=== PATIENT | female | born 2000 | race Caucasian/White ===

== ENCOUNTER 2019-01-14 04:31 | Emergency (ER) | payer OTHER ==
[2019-01-14 04:36] VITALS: BP 131/85; PULSE 98; RESP 16; TEMP 98.4
[2019-01-14 04:59] LABS: Appearance,Urine Cloudy (Clear); Bacteria,Urine Moderate /hpf; Bilirubin,Urine Negative (Negative); Blood,Urine Negative (Negative); Color,Urine Yellow; Glucose,Urine (UA) Negative (Negative); Hyaline Casts,Urine 6 /lpf (0-2); Ketones,Urine Negative (Negative); Leukocyte Esterase,Urine Negative (Negative); Mucus,Urine Moderate /hpf; Nitrite,Urine Negative (Negative); PH, Urine 6.5 (5.0-8.0); Protein,Urine Negative (Negative); RBC,Urine <1 /hpf (0-5); Specific Gravity,Urine 1.013 (1.001-1.035); Squamous Epithelial Cell,Urine 3 /hpf (0-4); Urobilinogen,Urine <2.0 mg/dL (<2.0); WBC,Urine 3 /hpf (0-5)
[2019-01-14 05:06] LABS: Amphetamine Screen,Urine Not Detected (NotDetected); Barbiturate Screen,Urine Not Detected (NotDetected); Benzodiazepines Screen,Urine Not Detected (NotDetected); Cocaine Screen,Urine Not Detected (NotDetected); Methadone Screen, Urine Not Detected (NotDetected); Opiate Screen,Urine Not Detected (NotDetected); Oxycodone Screen, Urine Not Detected (NotDetected); Phencyclidine Screen,Urine Not Detected (NotDetected); Tricyclic Antidepressant,Urine Not Detected (NotDetected); Urn Cannabinoid Scrn Detected (NotDetected)
--- NOTE | 2019-01-14 05:17 | ED ---
General Adult HPI - General Chief complaint: Syncope Stated complaint: LLQ Pain Time Seen by Provider: 01/14/19 04:36 Source: family, EMS, RN notes reviewed Mode of arrival: EMS Limitations: no limitations - History of Present Illness Initial comments: 18-year-old female presenting with lightheadedness, and lower abdominal pain. Patient states she was walking to [place] around 4:30 AM, felt somewhat lightheaded, and developed some lower abdominal pain. Pain is nearly completely resolved at the time my evaluation. Denies passing out. She states she has not had much to drink other than some soda pop throughout the day. She also admits to smoking marijuana earlier. Patient is asymptomatic at the time my evaluation. No vomiting. No diarrhea. No vaginal bleeding. No dysuria. No fever or chills. No cough or URI symptoms. - Related Data Allergies Allergy/AdvReac Type Severity Reaction Status Date / Time No Known Allergies Allergy Verified 01/14/19 05:10 Review of Systems ROS Statement: Those systems with pertinent positive or pertinent negative responses have been documented in the HPI. ROS Other: All systems not noted in ROS Statement are negative. Past Medical History Past Medical History: No Reported History History of Any Multi-Drug Resistant Organisms: None Reported Past Surgical History: No Surgical Hx Reported Past Psychological History: No Psychological Hx Reported, Anxiety Smoking Status: Current every day smoker Past Alcohol Use History: None Reported Past Drug Use History: Marijuana General Exam Limitations: no limitations General appearance: alert, in no apparent distress Head exam: Present: atraumatic, normocephalic Eye exam: Present: normal appearance, PERRL, EOMI ENT exam: Present: normal exam Neck exam: Present: normal inspection. Absent: tenderness, meningismus Respiratory exam: Present: normal lung sounds bilaterally. Absent: respiratory distress, wheezes, rales Cardiovascular Exam: Present: regular rate, normal rhythm GI/Abdominal exam: Present: soft, tenderness (Very mild tenderness, suprapubic) . Absent: distended, guarding, rebound, rigid Extremities exam: Present: normal inspection, normal capillary refill. Absent: pedal edema, calf tenderness Back exam: Present: normal inspection, full ROM Neurological exam: Present: alert, oriented X3, CN II-XII intact. Absent: motor sensory deficit Psychiatric exam: Present: normal affect, normal mood Skin exam: Present: warm, dry, intact Course Vital Signs 01/14/19 04:33 Temperature 98.4 F Pulse Rate 98 Respiratory 16 Rate Blood Pressure 131/85 O2 Sat by Pulse 98 Oximetry Medical Decision Making - Medical Decision Making 19-year-old female with lightheadedness, abdominal pain. Both symptoms resolved. Patient did smoke marijuana earlier in the day, symptoms may be related to marijuana use. She is soft abdomen with minimal focal tenderness suprapubic. No rebound or guarding. Vitals are stable. She will maintain oral hydration at home, she will abstain from marijuana use. She will return with worsening or changing abdominal pain. Urine test is negative, urinalysis negative for significant infection, and urine drug screen positive for marijuana. - Lab Data Lab Results 01/14/19 01/14/19 Range/Units 04:47 04:47 Urine Color Yellow Urine Appearance Cloudy H (Clear) Urine pH 6.5 (5.0-8.0) Ur Specific [place] 1.013 (1.001-1.035) Urine Protein Negative (Negative) Urine Glucose (UA) Negative (Negative) Urine Ketones Negative (Negative) Urine Blood Negative (Negative) Urine Nitrite Negative (Negative) Urine Bilirubin Negative (Negative) Urine Urobilinogen <2.0 (<2.0) mg/dL Ur Leukocyte Esterase Negative (Negative) Urine RBC <1 (0-5) /hpf Urine WBC 3 (0-5) /hpf Ur Squamous Epith Cells 3 (0-4) /hpf Urine Bacteria Moderate H (None) /hpf Hyaline Casts 6 H (0-2) /lpf Urine Mucus Moderate H (None) /hpf Urine HCG, Qual Not Detected (Not Detectd) Urine Opiates Screen Not Detected (NotDetected) Ur Oxycodone Screen Not Detected (NotDetected) Urine Methadone Screen Not Detected (NotDetected) Ur Propoxyphene Screen Not Detected (NotDetected) Ur Barbiturates Screen Not Detected (NotDetected) U Tricyclic Antidepress Not Detected (NotDetected) Ur Phencyclidine Scrn Not Detected (NotDetected) Ur Amphetamines Screen Not Detected (NotDetected) U Methamphetamines Scrn Not Detected (NotDetected) U Benzodiazepines Scrn Not Detected (NotDetected) Urine Cocaine Screen Not Detected (NotDetected) U Marijuana (THC) Screen Detected H (NotDetected) Disposition Clinical Impression: Dehydration, Marijuana use, Abdominal pain Disposition: HOME SELF-CARE Condition: Good Instructions (If sedation given, give patient instructions): Abdominal Pain (ED ) Is patient prescribed a controlled substance at d/c from ED?: No Referrals: None,Stated [Primary Care Provider] - 1-2 days Brooke Ny MD [REFERRING] - 1-2 days Time of Disposition: 05:17
== END 2019-01-14 05:20 | disposition home or self-care (01) ==
LOC: EC 04:31
DX: E86.0 Dehydration (principal); R10.30 Lower abdominal pain, unspecified; F12.90 Cannabis use, unspecified, uncomplicated; F17.200 Nicotine dependence, unspecified, uncomplicated
CPT/HCPCS: 80306; 81001; 81025; 99284

== ENCOUNTER 2019-01-18 19:27 | Emergency (ER) | payer OTHER ==
[2019-01-18 20:25] VITALS: RESP 18; TEMP 98.4
[2019-01-18] MEDS ORDERED: SODIUM CHLORIDE 0.9% 1,000 ML IV STA (20:33)
[2019-01-18] MEDS ORDERED: ONDANSETRON 4 MG/2 ML VIAL IVP STA (20:42)
[2019-01-18 20:55] LABS: Basophils % (A) 0 %; Eosinophils % (A) 1 %; HGB 13.5 gm/dL (11.4-16.0); Lymphocytes # (A) 1.1 k/uL (1.0-4.8); Lymphocytes % (A) 25 %; MCH 29.1 pg (25.0-35.0); MCV 88.1 fL (80.0-100.0); Mean Platelet Volume 6.8; Monocytes # (A) 0.4 k/uL (0-1.0); Monocytes % (A) 8 %; Neutrophils # (A) 2.9 k/uL (1.3-7.7); Neutrophils % (A) 64 %; Platelet Count 181 k/uL (150-450); RBC 4.65 m/uL (3.80-5.40); RDW 13.3 % (11.5-15.5); WBC 4.5 k/uL (4.0-11.0)
[2019-01-18 21:08] LABS: ALT 27 U/L (9-52); AST 21 U/L (14-36); Albumin 4.9 g/dL (3.5-5.0); Alkaline Phosphatase 56 U/L (38-126); Amylase 52 U/L (30-110); Anion Gap 10 mmol/L; Blood Urea Nitrogen 13 mg/dL (7-17); Calcium 9.7 mg/dL (8.4-10.2); Carbon Dioxide 22 mmol/L (22-30); Chloride 110 mmol/L (98-107); Glucose 101 mg/dL (74-99); Lipase 47 U/L (23-300); Potassium 3.8 mmol/L (3.5-5.1); Sodium 142 mmol/L (137-145); Total Bilirubin 0.6 mg/dL (0.2-1.3); Total Protein 8.3 g/dL (6.3-8.2)
[2019-01-18 22:00] LABS: Appearance,Urine Turbid (Clear); Bilirubin,Urine Negative (Negative); Blood,Urine Negative (Negative); Color,Urine Yellow; Glucose,Urine (UA) Negative (Negative); Ketones,Urine Negative (Negative); Leukocyte Esterase,Urine Negative (Negative); Mucus,Urine Rare /hpf; Nitrite,Urine Negative (Negative); Protein,Urine Trace (Negative); Squamous Epithelial Cell,Urine 4 /hpf (0-4); Urobilinogen,Urine <2.0 mg/dL (<2.0)
--- NOTE | 2019-01-18 22:21 | ED ---
General Adult HPI - General Chief complaint: Abdominal Pain Stated complaint: Abd pain Time Seen by Provider: 01/18/19 20:32 Source: patient, RN notes reviewed, old records reviewed Mode of arrival: ambulatory Limitations: no limitations - History of Present Illness Initial comments: 18-year-old female patient with no pertinent past medical history presents to ED with right lower quadrant pain. Patient was seen here approximate 4 days ago for similar symptoms over his left lower quadrant pain. Patient reports that she is not stretching right lower quadrant pains had some nausea as well as without emesis. Patient visited the pain is waxing and waning, nontender to palpation. Patient states that she has felt some intermittent dizziness. Patient denies dysuria, headache, shortness of breath, changes in vision, is that she is not . Systemic: Pt denies fatigue, myalgia, fever/chills, rash. Pt denies weakness, night sweats, weight loss. Neuro: Pt denies headache, visual disturbances, syncope or pre-syncope. HEENT: Pt denies ocular discharge or irritation, otalgia, rhinorrhea, pharyngitis or notable lymphadenopathy. Cardiopulmonary: Pt denies chest pain, SOB, heart palpitations, dyspnea on exertion. Abdominal/GI: Pt denies emesis or diarrhea : Pt denies dysuria, burning w/ urination, frequency/urgency. Denies new onset urinary or bowel incontinence. MSK: Pt denies myalgia, loss of strength or function in extremities. Neuro: Pt denies new onset weakness, paresthesias. - Related Data Home Medications Medication Instructions Recorded Confirmed Montelukast [Singulair] 10 mg PO DAILY PRN 01/18/19 01/18/19 Allergies Allergy/AdvReac Type Severity Reaction Status Date / Time cat dander Allergy Dyspnea Verified 01/18/19 21:27 Review of Systems ROS Statement: Those systems with pertinent positive or pertinent negative responses have been documented in the HPI. ROS Other: All systems not noted in ROS Statement are negative. Past Medical History Past Medical History: No Reported History History of Any Multi-Drug Resistant Organisms: None Reported Past Surgical History: No Surgical Hx Reported Past Psychological History: No Psychological Hx Reported, Anxiety Smoking Status: Current every day smoker Past Alcohol Use History: None Reported Past Drug Use History: Marijuana General Exam - General Exam Comments Initial Comments: Constitutional: NAD, AOX3, Pt has pleasant affect. HEENT: NC/AT, trachea midline, neck supple, no lymphadenopathy. Posterior pharynx non erythematous, without exudates. External ears appear normal, without discharge. Mucous membranes moist. Eyes PERRLA, EOM intact. There is no scleral icterus. No pallor noted. Cardiopulmonary: RRR, no murmurs, rubs or gallops, no JVD noted. Lungs CTAB in anterior and posterior mcdaniel. No peripheral edema. Abdominal exam: Abdomen soft and non-distended. Abdomen mildly tender to palpation in RLQ. Bowel sounds active in LLQ. No hepatosplenomegaly. No ecchymosis Neuro: CN II-XII intact. No nuchal rigidity. MSK: No posterior calf tenderness bilaterally, homans sign negative bilaterally. Posterior tibialis and radial pulse +2 bilaterally. Sensation intact in upper and lower extremities. Full active ROM in upper and lower extremities, 5/5 stregnth. Limitations: no limitations Course Vital Signs 01/18/19 01/18/19 20:21 23:05 Temperature 98.4 F Pulse Rate 128 H 78 Respiratory 18 18 Rate Blood Pressure 149/86 112/71 O2 Sat by Pulse 99 98 Oximetry Medical Decision Making - Medical Decision Making 18-year-old female patient with no pertinent past medical history presents to ED with right lower quadrant pain. Patient was seen here approximate 4 days ago for similar symptoms over his left lower quadrant pain. Patient reports that she is not stretching right lower quadrant pains had some nausea as well as without emesis. Patient visited the pain is waxing and waning, nontender to palpation. Patient states that she has felt some intermittent dizziness. Patient denies dysuria, headache, shortness of breath, changes in vision, is that she is not . Pt VSS, afebrile. Physical exam displayed: Abdomen soft and non-distended. Abdomen mildly tender to palpation in RLQ. Laboratory investigations are non-impressive CBC, CMP. UA negative. CT of abdomen and pelvis with contrast displayed partially imaged appendix which is unremarkable. 1 by peripherally enhancing right ovarian cyst, small amount of pelvic free fluid which may be physiologic and may relate to cyst rupture. These findings were explained to patient in depth. Patient verbalized understanding. Patient to be discharged, will follow up with primary care provider in 1-2 days. Patient to return to ED if new signs symptoms develop or condition worsens in any way. Case discussed with Dr. Blanco. - Lab Data Result diagrams: 01/18/19 20:44 01/18/19 20:44 Lab Results 01/18/19 01/18/19 01/18/19 Range/Units 20:20 20:20 20:44 WBC 4.5 (4.0-11.0) k/uL RBC 4.65 (3.80-5.40) m/uL Hgb 13.5 (11.4-16.0) gm/dL Hct 41.0 (34.0-46.0) % MCV 88.1 (80.0-100.0) fL MCH 29.1 (25.0-35.0) pg MCHC 33.0 (31.0-37.0) g/dL RDW 13.3 (11.5-15.5) % Plt Count 181 (150-450) k/uL Neutrophils % 64 % Lymphocytes % 25 % Monocytes % 8 % Eosinophils % 1 % Basophils % 0 % Neutrophils # 2.9 (1.3-7.7) k/uL Lymphocytes # 1.1 (1.0-4.8) k/uL Monocytes # 0.4 (0-1.0) k/uL Eosinophils # 0.0 (0-0.7) k/uL Basophils # 0.0 (0-0.2) k/uL Sodium (137-145) mmol/L Potassium (3.5-5.1) mmol/L Chloride (98-107) mmol/L Carbon Dioxide (22-30) mmol/L Anion Gap mmol/L BUN (7-17) mg/dL Creatinine (0.52-1.04) mg/dL Est GFR (CKD-EPI)AfAm (>60 ml/min/1.73 sqM) Est GFR (CKD-EPI)NonAf (>60 ml/min/1.73 sqM) Glucose (74-99) mg/dL Calcium (8.4-10.2) mg/dL Total Bilirubin (0.2-1.3) mg/dL AST (14-36) U/L ALT (9-52) U/L Alkaline Phosphatase (38-126) U/L Total Protein (6.3-8.2) g/dL Albumin (3.5-5.0) g/dL Amylase (30-110) U/L Lipase (23-300) U/L Urine Color Yellow Urine Appearance Turbid H (Clear) Urine pH 8.0 (5.0-8.0) Ur Specific [employer] 1.020 (1.001-1.035) Urine Protein Trace H (Negative) Urine Glucose (UA) Negative (Negative) Urine Ketones Negative (Negative) Urine Blood Negative (Negative) Urine Nitrite Negative (Negative) Urine Bilirubin Negative (Negative) Urine Urobilinogen <2.0 (<2.0) mg/dL Ur Leukocyte Esterase Negative (Negative) Urine WBC 5 (0-5) /hpf Urine WBC Clumps Rare H (None) /hpf Ur Squamous Epith Cells 4 (0-4) /hpf Urine Mucus Rare H (None) /hpf Urine HCG, Qual Not Detected (Not Detectd) 01/18/19 Range/Units 20:44 WBC (4.0-11.0) k/uL RBC (3.80-5.40) m/uL Hgb (11.4-16.0) gm/dL Hct (34.0-46.0) % MCV (80.0-100.0) fL MCH (25.0-35.0) pg MCHC (31.0-37.0) g/dL RDW (11.5-15.5) % Plt Count (150-450) k/uL Neutrophils % % Lymphocytes % % Monocytes % % Eosinophils % % Basophils % % Neutrophils # (1.3-7.7) k/uL Lymphocytes # (1.0-4.8) k/uL Monocytes # (0-1.0) k/uL Eosinophils # (0-0.7) k/uL Basophils # (0-0.2) k/uL Sodium 142 (137-145) mmol/L Potassium 3.8 (3.5-5.1) mmol/L Chloride 110 H (98-107) mmol/L Carbon Dioxide 22 (22-30) mmol/L Anion Gap 10 mmol/L BUN 13 (7-17) mg/dL Creatinine 0.63 (0.52-1.04) mg/dL Est GFR (CKD-EPI)AfAm >90 (>60 ml/min/1.73 sqM) Est GFR (CKD-EPI)NonAf >90 (>60 ml/min/1.73 sqM) Glucose 101 H (74-99) mg/dL Calcium 9.7 (8.4-10.2) mg/dL Total Bilirubin 0.6 (0.2-1.3) mg/dL AST 21 (14-36) U/L ALT 27 (9-52) U/L Alkaline Phosphatase 56 (38-126) U/L Total Protein 8.3 H (6.3-8.2) g/dL Albumin 4.9 (3.5-5.0) g/dL Amylase 52 (30-110) U/L Lipase 47 (23-300) U/L Urine Color Urine Appearance (Clear) Urine pH (5.0-8.0) Ur Specific [employer] (1.001-1.035) Urine Protein (Negative) Urine Glucose (UA) (Negative) Urine Ketones (Negative) Urine Blood (Negative) Urine Nitrite (Negative) Urine Bilirubin (Negative) Urine Urobilinogen (<2.0) mg/dL Ur Leukocyte Esterase (Negative) Urine WBC (0-5) /hpf Urine WBC Clumps (None) /hpf Ur Squamous Epith Cells (0-4) /hpf Urine Mucus (None) /hpf Urine HCG, Qual (Not Detectd) Disposition Clinical Impression: Abdominal pain Disposition: HOME SELF-CARE Condition: Stable Instructions (If sedation given, give patient instructions): Abdominal Pain (ED ) Additional Instructions: Patient to adhere to previously discussed treatment plan and will take medication(s) as directed. Patient to follow up with PCP in 1-2 days. Patient to return to ED if symptoms do not improve. Please follow-up with primary care provider tomorrow. Return to ER if symptoms worsen in anyway or if new signs symptoms develop. [facility] is a PCP which you may call. Is patient prescribed a controlled substance at d/c from ED?: No Referrals: None,Stated [Primary Care Provider] - 1-2 days [facility] [NON-STAFF] - 1-2 days
--- NOTE | 2019-01-18 23:04 | CT ---
EXAM: CT Abdomen and Pelvis With Intravenous Contrast CLINICAL HISTORY: Reason: Pain TECHNIQUE: Axial computed tomography images of the abdomen and pelvis with intravenous contrast. CTDI is 11.3 mGy and DLP is 490.5 mGy-cm. This CT exam was performed using one or more of the following dose reduction techniques: automated exposure control, adjustment of the mA and/or kV according to patient size, and/or use of iterative reconstruction technique. COMPARISON: None available FINDINGS: Lung bases: Imaged lung bases are clear. ABDOMEN: Liver: Mild hepatic periportal edema which is nonspecific. No focal hepatic abnormalities. Gallbladder and bile ducts: Gallbladder is unremarkable. No evidence of biliary dilatation. No calcified stones. Pancreas: Pancreas is unremarkable. Spleen: Mild splenomegaly measuring 13.6 cm in maximum length. Adrenals: No adrenal masses. Kidneys and ureters: No evidence of renal calculi or hydronephrosis. Stomach and bowel: Stomach is nondistended. No evidence of bowel obstruction or pneumoperitoneum. PELVIS: Appendix: Partially imaged appendix along right side of pelvis appears unremarkable, although appendix is partially obscured limiting CT evaluation for appendicitis. Clinical correlation is recommended. Bladder: Urinary bladder is incompletely distended but otherwise unremarkable. No bladder calculi. Reproductive: 1.8 cm peripherally enhancing right ovarian cyst. ABDOMEN and PELVIS: Intraperitoneal space: Small amount of pelvic free fluid. Bones/joints: No acute bony abnormalities. Vasculature: No abdominal aortic aneurysm. Lymph nodes: No evidence of lymphadenopathy. IMPRESSION: Mild hepatic periportal edema which is nonspecific. Partially imaged appendix along right side of pelvis appears unremarkable, although appendix is partially obscured limiting CT evaluation for appendicitis. Clinical correlation is recommended. 1.8 cm peripherally enhancing right ovarian cyst. Small amount of pelvic free fluid which may be physiologic and related to recent cyst rupture.
[2019-01-18 23:05] VITALS: BP 112/71; PULSE 78
== END 2019-01-18 23:30 | disposition home or self-care (01) ==
LOC: EC 19:27
DX: R10.31 Right lower quadrant pain (principal); N83.201 Unspecified ovarian cyst, right side; R42 Dizziness and giddiness; F17.200 Nicotine dependence, unspecified, uncomplicated; Z91.09 Other allergy status, other than to drugs and biological substances
CPT/HCPCS: 36415; 74177; 80053; 81001; 81025; 82150; 83690; 85025; 96361; 96374; 99284

== ENCOUNTER 2019-05-29 21:10 | Emergency (ER) | payer OTHER ==
[2019-05-29 23:12] LABS: Basophils % (A) 0 %; Eosinophils % (A) 1 %; HGB 12.8 gm/dL (11.4-16.0); Lymphocytes # (A) 0.7 k/uL (1.0-4.8); Lymphocytes % (A) 17 %; MCV 87.4 fL (80.0-100.0); Mean Platelet Volume 6.7; Monocytes # (A) 0.3 k/uL (0-1.0); Monocytes % (A) 6 %; Neutrophils # (A) 3.3 k/uL (1.3-7.7); Neutrophils % (A) 74 %; Platelet Count 193 k/uL (150-450); RBC 4.58 m/uL (3.80-5.40); RDW 13.4 % (11.5-15.5); WBC 4.4 k/uL (3.8-10.6)
[2019-05-29 23:21] LABS: ALT 19 U/L (9-52); AST 25 U/L (14-36); African American GFR (CKD) >90 (>60 ml/min/1.73 sqM); Albumin 4.7 g/dL (3.5-5.0); Alkaline Phosphatase 61 U/L (38-126); Anion Gap 10 mmol/L; Blood Urea Nitrogen 6 mg/dL (7-17); Calcium 9.4 mg/dL (8.4-10.2); Carbon Dioxide 23 mmol/L (22-30); Chloride 108 mmol/L (98-107); Glucose 85 mg/dL (74-99); Potassium 3.7 mmol/L (3.5-5.1); Sodium 141 mmol/L (137-145); Total Bilirubin 0.5 mg/dL (0.2-1.3); Total Protein 7.9 g/dL (6.3-8.2)
--- NOTE | 2019-05-29 23:25 | ED ---
General Adult HPI - General Chief complaint: Neuro Symptoms/Deficit Stated complaint: numbness in arms and legs, chest pain, head pressu Time Seen by Provider: 05/29/19 22:03 Source: patient, RN notes reviewed, old records reviewed Mode of arrival: ambulatory Limitations: no limitations - History of Present Illness Initial comments: 19-year-old female patient reportedly no pertinent past history presents to ED with multiple complaints. Patient reports that she has had some paresthesias in the dorsal aspect of her hand and the bottom of her left foot which have waxed and waned. Denies any right now. Patient also reports a mild waxing and waning headache, denies current headache. Pt also states that from time to time her eyes lose focus transiently. Denies any current visual changes. Patient has secondary complaint of some intermittent transient substernal chest pain that she has experienced 2-3 times over the last few days. Denies any today. Patient reports that she was previously evaluated for chest pain at [facility] 3 days ago and discharged. Patient primarily requests evaluation of brain today. Denies any other complaints. Systemic: Pt denies fatigue, fever/chills, rash. Pt denies weakness, night sweats, weight loss. Neuro: Pt denies headache, syncope or pre-syncope. HEENT: Pt denies ocular discharge or irritation, otalgia, rhinorrhea, pharyngitis or notable lymphadenopathy. Cardiopulmonary: Pt denies chest pain, SOB, heart palpitations, dyspnea on exertion. Abdominal/GI: Pt denies abdominal pain, n/v/d. : Pt denies dysuria, burning w/ urination, frequency/urgency. Denies new onset urinary or bowel incontinence. MSK: Pt denies myalgia, loss of strength or function in extremities. Neuro: Pt denies new onset weakness, paresthesias. - Related Data Home Medications Medication Instructions Recorded Confirmed Montelukast [Singulair] 10 mg PO DAILY PRN 01/18/19 01/18/19 Allergies Allergy/AdvReac Type Severity Reaction Status Date / Time cat dander Allergy Dyspnea Verified 05/29/19 21:26 Review of Systems ROS Statement: Those systems with pertinent positive or pertinent negative responses have been documented in the HPI. ROS Other: All systems not noted in ROS Statement are negative. Past Medical History Past Medical History: No Reported History History of Any Multi-Drug Resistant Organisms: None Reported Past Surgical History: No Surgical Hx Reported Past Psychological History: No Psychological Hx Reported, Anxiety Smoking Status: Current every day smoker Past Alcohol Use History: Occasional Past Drug Use History: Marijuana General Exam - General Exam Comments Initial Comments: Constitutional: NAD, AOX3, Pt has pleasant affect. HEENT: NC/AT, trachea midline, neck supple, no lymphadenopathy. Posterior pharynx non erythematous, without exudates. External ears appear normal, without discharge. Mucous membranes moist. Eyes PERRLA, EOM intact. There is no scleral icterus. No pallor noted. Cardiopulmonary: RRR, no murmurs, rubs or gallops, no JVD noted. Lungs CTAB in anterior and posterior mcdaniel. No peripheral edema. Abdominal exam: Abdomen soft and non-distended. Abdomen non-tender to palpation in all 4 quadrants. Bowel sounds active in LLQ. No hepatosplenomegaly. No ecchymosis Neuro: CN II-XII intact. No nuchal rigidity. No raccon eyes, no lópez sign, no hemotympanum. No cervical spinal tenderness. NIH 0. MSK: No posterior calf tenderness bilaterally, homans sign negative bilaterally. Posterior tibialis and radial pulse +2 bilaterally. Sensation intact in upper and lower extremities. Full active ROM in upper and lower extremities, 5/5 stregnth. Limitations: no limitations Course Vital Signs 05/29/19 05/30/19 21:22 00:39 Temperature 98.5 F Pulse Rate 120 H 82 Respiratory 18 16 Rate Blood Pressure 137/84 124/85 O2 Sat by Pulse 97 100 Oximetry Medical Decision Making - Medical Decision Making 19-year-old female patient reportedly no pertinent past history presents to ED with multiple complaints. Patient reports that she has had some paresthesias in the dorsal aspect of her hand and the bottom of her left foot which have waxed and waned. Denies any right now. Patient also reports a mild waxing and waning headache, denies current headache. Pt also states that from time to time her eyes lose focus transiently. Denies any current visual changes. Patient has secondary complaint of some intermittent transient substernal chest pain that she has experienced 2-3 times over the last few days. Denies any today. Patient reports that she was previously evaluated for chest pain at [facility] 3 days ago and discharged. Patient primarily requests evaluation of brain today. Denies any other complaints. Patient does signs stable, afebrile. Physical exam did not acute pathology, neurologic exam within normal limits, sensation intact. Laboratory investigations non-impressive. CT of brain and chest x-ray did not display acute process. Patient still currently asymptomati c. Patient discharged with neurology follow-up. Will return to ER if condition worsens. Case discussed with Dr. Benson. - Lab Data Result diagrams: 05/29/19 22:19 05/29/19 22: Lab Results 05/29/19 05/29/19 05/29/19 Range/Units 22:19 22:19 23:25 WBC 4.4 (3.8-10.6) k/uL RBC 4.58 (3.80-5.40) m/uL Hgb 12.8 (11.4-16.0) gm/dL Hct 40.0 (34.0-46.0) % MCV 87.4 (80.0-100.0) fL MCH 28.0 (25.0-35.0) pg MCHC 32.0 (31.0-37.0) g/dL RDW 13.4 (11.5-15.5) % Plt Count 193 (150-450) k/uL Neutrophils % 74 % Lymphocytes % 17 % Monocytes % 6 % Eosinophils % 1 % Basophils % 0 % Neutrophils # 3.3 (1.3-7.7) k/uL Lymphocytes # 0.7 L (1.0-4.8) k/uL Monocytes # 0.3 (0-1.0) k/uL Eosinophils # 0.0 (0-0.7) k/uL Basophils # 0.0 (0-0.2) k/uL Sodium 141 (137-145) mmol/L Potassium 3.7 (3.5-5.1) mmol/L Chloride 108 H (98-107) mmol/L Carbon Dioxide 23 (22-30) mmol/L Anion Gap 10 mmol/L BUN 6 L (7-17) mg/dL Creatinine 0.52 (0.52-1.04) mg/dL Est GFR (CKD-EPI)AfAm >90 (>60 ml/min/1.73 sqM) Est GFR (CKD-EPI)NonAf >90 (>60 ml/min/1.73 sqM) Glucose 85 (74-99) mg/dL Calcium 9.4 (8.4-10.2) mg/dL Total Bilirubin 0.5 (0.2-1.3) mg/dL AST 25 (14-36) U/L ALT 19 (9-52) U/L Alkaline Phosphatase 61 (38-126) U/L Total Protein 7.9 (6.3-8.2) g/dL Albumin 4.7 (3.5-5.0) g/dL Urine Color Urine Appearance (Clear) Urine pH (5.0-8.0) Ur Specific Red Level (1.001-1.035) Urine Protein (Negative) Urine Glucose (UA) (Negative) Urine Ketones (Negative) Urine Blood (Negative) Urine Nitrite (Negative) Urine Bilirubin (Negative) Urine Urobilinogen (<2.0) mg/dL Ur Leukocyte Esterase (Negative) Urine RBC (0-5) /hpf Urine WBC (0-5) /hpf Ur Squamous Epith Cells (0-4) /hpf Urine Mucus (None) /hpf Urine HCG, Qual Not Detected (Not Detectd) 05/29/19 Range/Units 23:25 WBC (3.8-10.6) k/uL RBC (3.80-5.40) m/uL Hgb (11.4-16.0) gm/dL Hct (34.0-46.0) % MCV (80.0-100.0) fL MCH (25.0-35.0) pg MCHC (31.0-37.0) g/dL RDW (11.5-15.5) % Plt Count (150-450) k/uL Neutrophils % % Lymphocytes % % Monocytes % % Eosinophils % % Basophils % % Neutrophils # (1.3-7.7) k/uL Lymphocytes # (1.0-4.8) k/uL Monocytes # (0-1.0) k/uL Eosinophils # (0-0.7) k/uL Basophils # (0-0.2) k/uL Sodium (137-145) mmol/L Potassium (3.5-5.1) mmol/L Chloride (98-107) mmol/L Carbon Dioxide (22-30) mmol/L Anion Gap mmol/L BUN (7-17) mg/dL Creatinine (0.52-1.04) mg/dL Est GFR (CKD-EPI)AfAm (>60 ml/min/1.73 sqM) Est GFR (CKD-EPI)NonAf (>60 ml/min/1.73 sqM) Glucose (74-99) mg/dL Calcium (8.4-10.2) mg/dL Total Bilirubin (0.2-1.3) mg/dL AST (14-36) U/L ALT (9-52) U/L Alkaline Phosphatase (38-126) U/L Total Protein (6.3-8.2) g/dL Albumin (3.5-5.0) g/dL Urine Color Light Yellow Urine Appearance Clear (Clear) Urine pH 7.0 (5.0-8.0) Ur Specific Red Level 1.010 (1.001-1.035) Urine Protein Negative (Negative) Urine Glucose (UA) Negative (Negative) Urine Ketones Trace H (Negative) Urine Blood Small H (Negative) Urine Nitrite Negative (Negative) Urine Bilirubin Negative (Negative) Urine Urobilinogen <2.0 (<2.0) mg/dL Ur Leukocyte Esterase Negative (Negative) Urine RBC 1 (0-5) /hpf Urine WBC 1 (0-5) /hpf Ur Squamous Epith Cells 1 (0-4) /hpf Urine Mucus Rare H (None) /hpf Urine HCG, Qual (Not Detectd) - EKG Data -: EKG Interpreted by Me (and Dr. Benson) EKG Comments: Ventricular 107, painful 132, QRS 98, QT/QTC 344/4. Sinus Tachycardia, and Complete Right Bundle-Branch Block. No Concern for Acute Ischemia at This Time. Disposition Clinical Impression: Paresthesia Disposition: HOME SELF-CARE Condition: Stable Instructions (If sedation given, give patient instructions): Paresthesia (ED) Additional Instructions: Patient to adhere to previously discussed treatment plan and will take medication(s) as directed. Patient to follow up with PCP in 1-2 days. Patient to return to ED if symptoms do not improve. Follow-up with primary care provider tomorrow. Follow up with neurologic consult tomorrow. Return to ER if condition worsens. Is patient prescribed a controlled substance at d/c from ED?: No Referrals: Naveen Corcoran MD [Primary Care Provider] - 1-2 days Jesus Gregg MD [Medical Doctor] - 1-2 days
[2019-05-30 00:02] LABS: Appearance,Urine Clear (Clear); Bilirubin,Urine Negative (Negative); Blood,Urine Small (Negative); Color,Urine Light Yellow; Glucose,Urine (UA) Negative (Negative); Ketones,Urine Trace (Negative); Leukocyte Esterase,Urine Negative (Negative); Mucus,Urine Rare /hpf; Nitrite,Urine Negative (Negative); Protein,Urine Negative (Negative); RBC,Urine 1 /hpf (0-5); Squamous Epithelial Cell,Urine 1 /hpf (0-4); Urobilinogen,Urine <2.0 mg/dL (<2.0); WBC,Urine 1 /hpf (0-5)
--- NOTE | 2019-05-30 00:59 | CT ---
EXAM: CT Head Without Intravenous Contrast CLINICAL HISTORY: ITS.REASON CT Reason: Pain Headache TECHNIQUE: Axial computed tomography images of the head/brain without intravenous contrast. CTDI is 49.1 mGy and DLP is 1087 mGy-cm. This CT exam was performed using one or more of the following dose reduction techniques: automated exposure control, adjustment of the mA and/or kV according to patient size, and/or use of iterative reconstruction technique. COMPARISON: No relevant prior studies available. FINDINGS: Brain: Unremarkable. No hemorrhage. No significant white matter disease. No edema. Ventricles: Unremarkable. No ventriculomegaly. Bones/joints: Unremarkable. No acute fracture. Soft tissues: Unremarkable. Sinuses: Unremarkable as visualized. No acute sinusitis. Mastoid air cells: Unremarkable as visualized. No mastoid effusion. IMPRESSION: No evidence of acute intracranial abnormality.
--- NOTE | 2019-05-30 01:10 | XR ---
EXAM: XR Chest, 2 Views CLINICAL HISTORY: ITS.REASON XR Reason: Pain TECHNIQUE: Frontal and lateral views of the chest. COMPARISON: No relevant prior studies available. FINDINGS: Lungs: Unremarkable. No consolidation. Pleural space: Unremarkable. No pneumothorax. Heart: Unremarkable. No cardiomegaly. Mediastinum: Unremarkable. Bones/joints: Unremarkable. IMPRESSION: No evidence of acute cardiopulmonary disease.
[2019-05-30 01:48] VITALS: BP 112/84; PULSE 96; RESP 18; TEMP 98.2
== END 2019-05-30 01:48 | disposition home or self-care (01) ==
LOC: EC 21:10
DX: R20.2 Paresthesia of skin (principal); I45.10 Unspecified right bundle-branch block; R00.0 Tachycardia, unspecified; R51 Headache; R07.89 Other chest pain; F17.200 Nicotine dependence, unspecified, uncomplicated; Z91.048 Other nonmedicinal substance allergy status
CPT/HCPCS: 36415; 70450; 71046; 80053; 81001; 81025; 85025; 93005; 99285